=== PATIENT | male | born 1965 | race Caucasian/White ===

== ENCOUNTER → 2023-08-21 12:35 | Outpatient (REF) | payer OTHER, SELFPAY | LOC: RAD 12:35 | PROVIDERS: ATTENDING PHYSICIAN Radiology Diagnostic Radiology; FAMILY PHYSICIAN Internal Medicine | DX: Z01.818 Encounter for other preprocedural examination (principal) | CPT/HCPCS: 70030 ==

== ENCOUNTER → 2024-06-09 15:22 | Outpatient (REF) | payer OTHER, BC, SELFPAY | LOC: RAD 15:22 | PROVIDERS: ATTENDING PHYSICIAN Internal Medicine | DX: M54.50 Low back pain, unspecified (principal) | CPT/HCPCS: 72110 ==

== ENCOUNTER → 2024-07-04 17:58 | Outpatient (REF) | payer BC, SELFPAY | LOC: RAD 17:58 | PROVIDERS: FAMILY PHYSICIAN Internal Medicine | DX: Z03.823 Encounter for observation for suspected inserted (injected) foreign body ruled out (principal) | CPT/HCPCS: 70030 ==